=== PATIENT | male | born 1960 | race Caucasian/White ===

== ENCOUNTER 2020-03-31 14:38 | Outpatient (REF) | payer SELFPAY ==
[2020-03-31 15:55] LABS: Cholesterol 238 mg/dL
[2020-03-31 16:17] LABS: SARS COV2 IgG Negative (Negative)
== END 2020-03-31 14:39 | disposition home or self-care (01) ==
LOC: HO.LNC 14:38
PROVIDERS: Visit Provider Pathology Anatomic Pathology & Clinical Pathology
DX: Z20.828 Contact with and (suspected) exposure to other viral communicable diseases (principal)
CPT/HCPCS: 82465; 86769